=== PATIENT | male | born 1980 | race Caucasian/White ===

== ENCOUNTER 2019-01-10 11:15 | Outpatient (CLI) | payer MEDICAID ==
[2019-01-10] MEDS ORDERED: gadopentetate dimeglumine 10 MMOL/20 ML syringe IV ONE (19:06)
== END 2019-01-10 23:59 | disposition home or self-care (01) ==
LOC: RAD 11:15
PROVIDERS: ATTEND Specialist
DX: M25.572 Pain in left ankle and joints of left foot (principal)
CPT/HCPCS: 73723; A9579